=== PATIENT | male | born 1965 | race Caucasian/White ===

== ENCOUNTER → 2020-04-20 | Outpatient (CLI) | payer OTHER ==
--- NOTE | 2020-04-20 18:05 | CARDNUC ---
[place] [address] CARDIAC NUCLEAR IMAGING REPORT Name: JACQUELINEMATTHEW Ivan Room: [facility]#: [id number] Admission: 04/20/20 Attend Phys: Annemarie Wagner, Discharge: Date of : 61 Date of Service: 04/20/20 1804 Report #: [id number] THIS REPORT FOR: cc: Cindi Son Stephanie P. DO Liston, Michael J. MD [facility] ~ APPROVED REPORT Study performed: 04/20/2020 10:45:12 Exam: Nuclear Stress Test Indication: Abnormal EKG, Angina, Dyspnea, Jaw pain. Patient Location: Out-Patient Stress Tech: Ara Mccloud Stress Nurse: Derrick Page Tech:FARRUKH Suarez Ht: 6 ft 2 in Wt: 220 lbs BSA: 2.26 m2 BMI: 28.24 Medical History Medical History: Angina, Dyspnea, HX ABN EKG, Jaw pain, nausea, lynx device, CAD, HLD, once a month cigar smoker, family HX of CAD. Medications: None Allergies: No known drug allergies Cardiac Risk Factors: Age, HX ABN EKG, dyspnea, chest pain/jaw pain, HLD, past smoker, cigar smoker 1 time/mo. Previous Cardiac Procedures: None Pretest Chest Pain Characteristics: No chest pain Exercise History: Indeterminate Physical Disabilities: None Meds Held (24 hrs): None Stress Test Details Stress Test: Exercise stress testing was performed using a Adalid protocol. HR Resting HR: 58 bpm Max Heart Rate (APMHR): 163 bpm Max HR Achieved: 160 bpm Target HR (85% APMHR): 138 bpm % of APMHR: 98 Recovery HR: 88 [place] [address] CARDIAC NUCLEAR IMAGING REPORT Name: MATTHEW PHILLIPS Room: [facility]#: [id number] Admission: 04/20/20 Attend Phys: Annemarie Wagner, Discharge: Date of : 61 Date of Service: 04/20/20 1804 Report #: [id number] Resting BP: 119/71 mmHg Max BP: 207/81 mmHg ECG Resting ECG: Sinus Rhythm Stress ECG: Sinus Tachycardia ST Change: None Arrhythmia: None Recovery ECG: Sinus Rhythm Recovery ST Change: None Recovery Arrhythmia: None Clinical Reason for Termination: Completed protocol, Maximal effort, Patient Request. Stress Symptoms: Dyspnea, Nausea, Lightheaded. Exercise duration: 10 min 38 sec Exercise capacity: 12.87 METs Overall Exercise Capacity for Age: Normal The patient tolerated standard Adalid protocol exercise without significant cardiac symptoms. Nurse Comments A 55 year old male presented for a Adalid Protocol Nuclear Stress Test r/t chest pain, jaw pain with increased SOA. Treadmill tolerated to Stage 4. Recovery unremarkable. Patient was escorted by staff to Nuclear Medicine for imaging. Patient was stable and stated he felt good at that time. Stress ECG Conclusion The baseline twelve-lead EKG shows sinus rhythm without significant ST segment or T wave abnormality. EKGs obtained during and post exercise show sinus rhythm and sinus tachycardia with no significant ST segment or T wave changes when compared to baseline. There were no stress-induced arrhythmias. NM EXAM: Myocardial Perfusion REST/STRESS Imaging Protocol: Rest Tc-99m/Stress Tc-99m 1 day Resting Data Rest SPECT myocardial perfusion imaging was performed in supine position 30 minutes following the intravenous injection of 11.2 mCi of Tc-99m Sestamibi. Time of rest injection: 909 Date: 04/20/2020 The images were gated to evaluate regional wall motion and calculate left ventricular [place] [address] CARDIAC NUCLEAR IMAGING REPORT Name: MATTHEW PHILLIPS Room: [facility]#: [id number] Admission: 04/20/20 Attend Phys: Annemarie Wagner, Discharge: Date of : 61 Date of Service: 04/20/20 1804 Report #: [id number] Administration Route: IV Administration Site: Right Hand Exercise Stress At peak stress, the patient was injected intravenously with 29.9mCi of Tc-99m Sestamibi. Time of stress injection: 1055 Date: 04/20/2020 Administration Route: IV Administration Site: Right Hand Gated Stress SPECT was performed 30 minutes after stress injection. The images were gated to evaluate regional wall motion and calculate left ventricular ejection fraction. Prone imaging was performed. Study Quality Study: Good Artifact: Mild Diaphragmatic artifact Study Data At rest, the left ventricular ejection fraction was 71%.. Post stress, the left ventricular ejection was 69%.. TID = 0.79. Perfusion Perfusion studies obtained in the supine position at rest and post exercise stress show photopenia in the inferior wall consistent with diaphragmatic attenuation artifact. Post-rest perfusion images obtained in the prone position show uniform uptake of the radioisotope throughout the myocardium. Wall Motion Normal left ventricular wall motion. Nuclear Conclusion ECG Findings: negative for ischemia Clinical Findings: negative for ischemia Nuclear Findings: negative for ischemia Exercise Capacity: normal Left Ventricular Function: normal Risk Study: low Perfusion study showed no defect to suggest infarct or ischemia. Left ventricular systolic function appears normal on gated studies. This is a low risk study. <Conclusion> [place] [address] CARDIAC NUCLEAR IMAGING REPORT Name: MATTHEW PHILLIPS [id number] Admission: 04/20/20 Attend Phys: Annemarie Wagner, Discharge: Date of : 61 Date of Service: 04/20/20 1804 Report #: [id number] The baseline twelve-lead EKG shows sinus rhythm without significant ST segment or T wave abnormality. EKGs obtained during and post exercise show sinus rhythm and sinus tachycardia with no significant ST segment or T wave changes when compared to baseline. There were no stress-induced arrhythmias. <ELECTRONICALLY SIGNED> By: Murali Crawford MD, FACC 04/20/201803 03 03 Murali Crawford MD, FACC /INF
== END ==
LOC: M.NUC 04-09 07:56 → M.CRD 04-19 09:00 → M.NUC 04-19 09:00
PROVIDERS: ATTEND Internal Medicine
DX: R07.9 Chest pain, unspecified (principal); E78.2 Mixed hyperlipidemia; R68.84 Jaw pain

== ENCOUNTER → 2021-09-26 | Outpatient (CLI) | payer OTHER ==
[2021-09-26 10:11] LABS: ALBUMIN 3.9 g/dL (3.4-5.0); ALKALINE PHOSPHATASE 106 U/L (46-116); CHOLESTEROL 155 mg/dL (<200); DIRECT BILIRUBIN 0.1 mg/dL (<0.1-0.3); HDL CHOLESTEROL 44 mg/dL (>40); LDL CHOLESTEROL 95 mg/dL (<100); SERUM ASSESSMENT CL; SGOT 37 U/L (15-37); SGPT 52 U/L (30-65); TC:HDL 3.5 Ratio (Not establshd); TOTAL BILIRUBIN 0.3 mg/dL (<0.1-1.0); TOTAL PROTEIN 6.6 g/dL (6.4-8.2); TRIGLYCERIDE 82 mg/dL (<150); VLDL 16 mg/dL (<40)
== END ==
LOC: M.LAB 09:42
PROVIDERS: ATTEND Nurse Practitioner
DX: E78.2 Mixed hyperlipidemia (principal); R07.9 Chest pain, unspecified